=== PATIENT | male | born 1985 | race Hispanic/Latino ===

== ENCOUNTER 2016-09-16 11:27 | Inpatient (IN) | payer MEDICAID, OTHER ==
[2016-09-16 11:36] VITALS: BMI 28.1
[2016-09-19 09:31] VITALS: RESP 18
[2016-09-21 06:18] VITALS: TEMP 98
[2016-09-21 09:21] VITALS: BP 129/88; PULSE 104; O2SAT 96
== END 2016-09-21 10:30 | disposition home or self-care (01) | DRG 895 ==
LOC: C.ER 11:27 → C.7D 14:43
PROVIDERS: ADMIT Psychiatry & Neurology Psychiatry; ATTEND Psychiatry & Neurology Psychiatry
PROC: HZ2ZZZZ Detoxification Services for Substance Abuse Treatment (ICD-10-PCS; principal; 2016-09-16)
PROC: HZ59ZZZ Individual Psychotherapy for Substance Abuse Treatment, Supportive (ICD-10-PCS; 2016-09-16)
PROC: HZ59ZZZ Individual Psychotherapy for Substance Abuse Treatment, Supportive (ICD-10-PCS; 2016-09-16)
PROC: GZ3ZZZZ Medication Management (ICD-10-PCS; 2016-09-16)
PROC: HZ90ZZZ Pharmacotherapy for Substance Abuse Treatment, Nicotine Replacement (ICD-10-PCS; 2016-09-16)
DX: F11.23 Opioid dependence with withdrawal (principal); F10.239 Alcohol dependence with withdrawal, unspecified; F14.20 Cocaine dependence, uncomplicated; F31.30 Bipolar disorder, current episode depressed, mild or moderate severity, unspecified; F90.9 Attention-deficit hyperactivity disorder, unspecified type; G47.00 Insomnia, unspecified; F60.9 Personality disorder, unspecified; F17.210 Nicotine dependence, cigarettes, uncomplicated; Z85.6 Personal history of leukemia; Z59.0 Homelessness